=== PATIENT | male | born 1965 | race Caucasian/White ===

== ENCOUNTER → 2019-12-16 13:08 | Outpatient (REF) | payer BC, SELFPAY | LOC: ANHLAB 13:08 | PROVIDERS: PCP Family Medicine; Visit Provider Nurse Practitioner | DX: B07.0 Plantar wart (principal) | CPT/HCPCS: 88305 ==

== ENCOUNTER 2021-01-19 11:09 | Outpatient (CLI) | payer BC, SELFPAY ==
--- NOTE | 2021-01-28 12:33 | WPDHOLTEREM ---
Holter/Event Monitor Holter/Event Monitor Date of procedure: 01/19/21 Holter/Event Procedure: 48 Hr Holter Monitor Indications: Palpitations Conclusion: 1. 48 hour holter monitor on 01/19/21. 2. Underlying rhythm is sinus rhythm. HR range 48-135 bpm; average HR 74 bpm. 3. There are 12 premature supraventricular complexes. No supraventricular tachycardia. 4. There are 1,144 premature ventricular complexes, 16 ventricular couplets, 54 ventricular bigeminy, and 60 ventricular trigeminy. No ventricular tachycardia. 5. No sinoatrial or atrioventricular blocks. No significant pauses greater than 2 seconds. 6. Patient reports symptoms of skipping which demonstrates sinus rhythm, HR range 62-82 bpm and 1 PVC.
== END 2021-01-19 11:10 | disposition home or self-care (01) ==
LOC: ANHCARD 11:10
PROVIDERS: PCP Family Medicine; Visit Provider Physician Assistant Medical
DX: R00.2 Palpitations (principal)
CPT/HCPCS: 93225; 93226

== ENCOUNTER 2021-04-19 07:56 | Outpatient (CLI) | payer BC, SELFPAY ==
--- NOTE | 2021-04-29 17:37 | WPDHOMESLEEP ---
Sleep Study - Home Unattended Date of Study: 04/19/21 <Tanya Ta DO - Last Filed: 04/29/21 18:01> Ordering Provider: Ernst Singh DO <Tanya Ta DO - Last Filed: 04/29/21 18:01> Interpreting Provider: Tanya Ta DO <Tanya Ta DO - Last Filed: 04/29/21 18:01> Home Sleep Study Type: Apnea Link Air <Tanya Ta DO - Last Filed: 04/29/21 18:01> Height: 1.83 m <Tanya Ta DO - Last Filed: 04/29/21 18:01> Weight: 132.903 kg <Tanya Ta DO - Last Filed: 04/29/21 18:01> Body Mass Index: 39.7 <Tanya Ta DO - Last Filed: 04/29/21 18:01> Neck Circumference (inches): 19 <Tayna Ta DO - Last Filed: 04/29/21 18:01> Alto: 3 <Tanya Ta DO - Last Filed: 04/29/21 18:01> Reason for Sleep Study The patient has snoring and daytime somnolence. <Tanya Ta DO - Last Filed: 04/29/21 18:01> Sleep History The patient is a 56-year-old male with hypertension, asthma, GERD that was referred by Dr. Singh for evaluation of RENETTA. 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 He states that he rarely awakens from sleep short of breath. He never awakens at night with heartburn, belching or cough. He often snores but never loud enough that others complain. He often has trouble sleeping when he has a cold. He rarely wakes up gasping for air throughout the night. He denies having breathing problems at night observed by others. He rarely falls asleep during the day and never while driving. He denies sleep paralysis, cataplexy and hypnagogic / hypnopompic hallucinations. He rarely has nightmares. He rarely feels sad or depressed but often has anxiety. He denies kicking throughout the night. He often experiences crawling and aching feelings in his legs. He often has leg pain during the night. He denies grinding his teeth during sleep and awakening with jaw pain in the morning. He is often bothered by pain during the day but never awakened by pain during the night. He goes to bed at midnight on both the weekdays and weekends. It takes him 5-10 minutes to fall asleep at night. He wakes up twice throughout the night. When he gets up, he will either try to go back to sleep or use the restroom. He can fall back asleep quickly. He typically wakes up at 3:00 a.m. on the weekdays and 4:00 a.m. on the weekends. He gets about 5 hours of sleep per night. He will lay in bed for 3-5 minutes after waking up in the morning. He currently lives with his . He denies consuming any caffeinated beverages within 2 hours of going to bed. He denies physical exercise before bedtime. He does not read or watch television before falling asleep. He does not nap during the afternoon or the evening. He denies tobacco, caffeine, alcohol and recreational drug use. <Tanya Ta DO - Last Filed: 04/29/21 18:01> [facility] Past Medical History Medical History: Medical History Acid reflux Asthma BMI 33.0-33.9,adult BMI 34.0-34.9,adult Hypertension <Tanya Ta DO - Last Filed: 04/29/21 18:01> Surgical History Surgical History: Surgical History History of back surgery 1995 History of knee surgery 1994 <Tanya Ta DO - Last Filed: 04/29/21 18:01> Family History Family History: Family History Grandparent Family history of malignant neoplasm of stomach Diabetes mellitus Father Acute myocardial infarction Other Cerebrovascular accident Family history of coronary artery disease Hypertension <Tanya Ta DO - Last Filed: 04/29/21 18:01> Social History Social History: Social History Alcohol intake: never Sub
[2021-04-29 17:45] VITALS: BMI 39.7
== END 2021-04-20 09:58 | disposition home or self-care (01) ==
LOC: ANHCSM 07:57
PROVIDERS: PCP Family Medicine; Visit Provider Internal Medicine Cardiovascular Disease
DX: G47.10 Hypersomnia, unspecified (principal); G47.33 Obstructive sleep apnea (adult) (pediatric)
CPT/HCPCS: 95806

== ENCOUNTER 2021-05-13 07:54 | Outpatient (CLI) | payer BC, SELFPAY ==
--- NOTE | ~2021-05-13 | XR_ITS ---
EXAMINATION: XR chest 2V DATE: 05/13/2021 08:07 INDICATION: Acute bronchitis TECHNIQUE: PA and lateral views of the chest were obtained. COMPARISON: Chest radiograph dated 11/27/2012 FINDINGS: There is some infrahilar bronchial wall thickening consistent with given history of bronchitis. There also however some mild airspace opacities in bilateral lower lung zones consistent with pneumonia. N o pleural effusion or pneumothorax. The cardiomediastinal silhouette is normal. Chronic mild anterior wedging of a few lower thoracic vertebral bodies with mild spondylosis. IMPRESSION: 1. Bronchial wall thickening but also subtle airspace opacities in bilateral lower lung zones consist ent with bronchitis and likely early pneumonia. Reviewed, dictated and finalized at location A. IMPRESSION: 1. Bronchial wall thickening but also subtle airspace opacities in bilateral lo wer lung zones consistent with bronchitis and likely early pneumonia.
== END 2021-05-13 07:55 | disposition home or self-care (01) ==
LOC: ANHIMG 07:55
PROVIDERS: PCP Family Medicine; Visit Provider Physician Assistant Medical
DX: J20.9 Acute bronchitis, unspecified (principal); M47.814 Spondylosis without myelopathy or radiculopathy, thoracic region
CPT/HCPCS: 71046

== ENCOUNTER 2021-10-30 13:45 | Emergency (ER) | payer BC, SELFPAY ==
[2021-10-30 13:49] VITALS: BP 131/85; PULSE 92; RESP 20; TEMP 36.6; O2SAT 98
--- NOTE | 2021-10-30 14:47 | ED.GENADULT ---
HPI - General Adult General Chief complaint: Wound/Laceration Stated complaint: insect bite. Source: patient Mode of arrival: ambulatory Limitations: no limitations History of Present Illness HPI narrative: Patient presents for evaluation of what he believes is a spider bite to the left forearm. He states that this occurred around noon today. He initially had some erythema extending down the forearm to the wrist. He states that the erythema has resolved. He denies any drainage, pain, swelling or pruritis. He is not diabetic. He has not tried any therapies to assist with his symptoms. No loss of ROM in affected extremity. No additional complaints or concerns. Related Data Home Medications Medication Instructions Recorded Confirmed esomeprazole magnesium 20 mg 20 mg PO DAILY 06/17/21 10/30/21 tablet,delayed release Allergies Allergy/AdvReac Type Severity Reaction Status Date / Time No Known Allergies Allergy Unknown Verified 10/30/21 14:04 Review of Systems Review of Systems: CONSTITUTIONAL: Denies fever, chills, or sweats. EYES: Denies visual changes, redness, or discharge. ENT: Denies rhinorrhea, congestion, sore throat, or otalgia. CARDIOVASCULAR: Denies chest pain, palpitations, or edema. RESPIRATORY: Denies cough or dyspnea. GASTROINTESTINAL: Denies abdominal pain, nausea, vomiting, or diarrhea. GENITOURINARY: Denies dysuria or hematuria. SKIN: Reports redness to the left forearm earlier, now resolved. MUSCULOSKELETAL: Denies back pain, joint pain, or myalgia. NEUROLOGIC: Denies headache, numbness, dizziness, or weakness. PSYCHIATRIC: Denies anxiety or depression. [facility] Past Medical History Medical History Acid reflux Asthma BMI 33.0-33.9,adult BMI 34.0-34.9,adult Hypertension Surgical History Surgical History History of back surgery 1995 History of knee surgery 1994 Family History Family History Grandparent Family history of malignant neoplasm of stomach Diabetes mellitus Father Acute myocardial infarction Other Cerebrovascular accident Family history of coronary artery disease Hypertension Social History Social History (Reviewed 10/30/21 @ 14:49 by Oren Soliman, [facility], [place] Smoking status: Unknown if ever smoked Alcohol intake: never Substance use: never Substance use type: does not use Additional living arrangements comments: Additional occupation/education comments: [employer] Gender identity (if verbalized by the patient): Male Sexual Orientation (if Verbalized by the Patient): Straight or Heterosexual Spiritual care concerns: No Agree to blood products: Yes Exam Narrative: GENERAL: Well-appearing, well-nourished, and in no acute distress. HEAD: Normocephalic, atraumatic. EYES: PERRLA and EOMI. ENT: Nares clear, no rhinorrhea or epistaxis. Mucous membranes moist. Oropharynx without tonsillar hypertrophy exudate or other lesions. Bilateral TMs pearly denney nonbulging NECK: Supple. No adenopathy or masses. No carotid bruits or JVD CHEST: Clear to auscultation. No respiratory distress. No wheezes rales or rhonchi HEART: Regular rate and rhythm. No murmur heard. Normal peripheral pulses. ABDOMEN: Soft, nontender, nondistended, normal active bowel sounds. EXTREMITIES: Normal range of motion. No edema. SKIN: There are a few pinpoint area of erythema to proximal aspect of the left forearm. Warm, dry, no rash. NEURO: No focal deficits. Alert and oriented x3. PSYCH: Normal mood and affect. Course Course Emergency Course: This is a 56-year-old male who presented with concerns that he may have experienced a spider bite just COUNTER POCKET SEWER. Upon the time of my evaluation, his symptoms are near resolved. I do not appreciate any significant abnormalities on my exam. In
== END 2021-10-30 14:45 | disposition home or self-care (01) ==
PROVIDERS: Emergency Provider Nurse Practitioner; PCP Family Medicine
DX: S50.862A Insect bite (nonvenomous) of left forearm, initial encounter (principal); W57.XXXA Bitten or stung by nonvenomous insect and other nonvenomous arthropods, initial encounter; K21.9 Gastro-esophageal reflux disease without esophagitis; J45.909 Unspecified asthma, uncomplicated
CPT/HCPCS: 99211; G0463

== ENCOUNTER 2022-02-09 09:05 | Outpatient (CLI) | payer BC, SELFPAY ==
--- NOTE | 2022-02-09 09:19 | EST_ITS ---
Patient Info Name: Mick Guerrero Age: 56 years : 1965 Gender: Male Ht: 72 in Wt: 260 lbs BSA: 2.49 m2 HR: 87 bpm BP: 148 / 102 mmHg Heart Rhythm: Sinus Rhythm Exam Date: 02/09/2022 9:54 AM Exam Location: [facility] Stress Patient Status: Outpatient Admit Date: 02/09/2022 Staff Ordering Physician: Ernst Singh DO Attending Provider: Ernst Singh DO Exercise Technologist: Anita Saavedra CT Exercise Physician: Ernst Singh DO Exam Type: CA stress test treadmill Study Info Indications R07.9 - Chest pain, unspecified A treadmill exercise stress test was performed. Summary 1. 1. Negative Davon exercise stress test for ischemic ST changes by ECG criteria. 2. 2. Reduced functional capacity, achieving 7 METs of workload. 3. 3. Baseline hypertension. 4. 4. Appropriate HR response to exercise. 5. 5. Appropriate HR recovery at 1 minute post exercise. 6. 6. No imaging with stress testing. 7. 7. Patient informed of the above results. Protocol: Davon Stress ECG Details Stage: REST Duration (min): 2 min : 16 sec Speed (mph): 0.0 Grade (%): 0 HR (bpm): 83 SBP (mmHg): 148 DBP (mmHg): 102 METS: --- Stage: REST Duration (min): 12 min : 40 sec Speed (mph): 0.0 Grade (%): 0 HR (bpm): 112 SBP (mmHg): 150 DBP (mmHg): 102 METS: --- Stage: STAGE 1 Duration (min): 1 min : 0 sec Speed (mph): 1.7 Grade (%): 10 HR (bpm): 109 SBP (mmHg): 150 DBP (mmHg): 102 METS: --- Stage: STAGE 1 Duration (min): 2 min : 0 sec Speed (mph): 1.7 Grade (%): 10 HR (bpm): 119 SBP (mmHg): 150 DBP (mmHg): 102 METS: --- Stage: STAGE 1 Duration (min): 3 min : 0 sec Speed (mph): 1.7 Grade (%): 10 HR (bpm): 125 SBP (mmHg): 184 DBP (mmHg): 89 METS: --- Stage: STAGE 2 Duration (min): 1 min : 0 sec Speed (mph): 2.5 Grade (%): 12 HR (bpm): 132 SBP (mmHg): 184 DBP (mmHg): 89 METS: --- Stage: STAGE 2 Duration (min): 2 min : 0 sec Speed (mph): 2.5 Grade (%): 12 HR (bpm): 138 SBP (mmHg): 190 DBP (mmHg): 92 METS: --- Stage: STAGE 2 Duration (min): 2 min : 59 sec Speed (mph): 3.4 Grade (%): 14 HR (bpm): 145 SBP (mmHg): 190 DBP (mmHg): 92 METS: --- Stage: RECOVERY Duration (min): 1 min : 0 sec Speed (mph): 0.0 Grade (%): 0 HR (bpm): 125 SBP (mmHg): 183 DBP (mmHg): 81 METS: --- Stage: RECOVERY Duration (min): 2 min : 0 sec Speed (mph): 0.0 Grade (%): 0 HR (bpm): 100 SBP (mmHg): 183 DBP (mmHg): 81 METS: --- Stage: RECOVERY Duration (min): 3 min : 0 sec Speed (mph): 0.0 Grade (%): 0 HR (bpm): 106 SBP (mmHg): 183 DBP (mmHg): 81 METS: --- Stage: RECOVERY Duration (min): 3 min : 3 sec Speed (mph): 0.0 Grade (%): 0 HR (bpm): 108 SBP (mmHg): 183 DBP (mmHg): 81 METS: --
== END 2022-02-09 09:06 | disposition home or self-care (01) ==
PROVIDERS: PCP Family Medicine; Visit Provider Internal Medicine Cardiovascular Disease
DX: R07.9 Chest pain, unspecified (principal); I10 Essential (primary) hypertension
CPT/HCPCS: 93017

== ENCOUNTER 2022-03-01 08:16 | Outpatient (CLI) | payer BC, SELFPAY ==
--- NOTE | ~2022-03-01 | XR_ITS ---
XR knee RT min 4V 03/01/2022 08:31 Indication: Right knee pain Procedure: 4 views right knee Comparison: 12/26/2018 Findings: There is mild osteoarthritis. No fracture or traumatic malalignment. No significant joint e ffusion. No foreign body. Impression: 1: Mild osteoarthritis of the right knee. Reviewed, dictated and finalized at location A. Impression: 1: Mild osteoarthritis of the right knee.
== END 2022-03-01 08:17 | disposition home or self-care (01) ==
PROVIDERS: PCP Family Medicine; Visit Provider Family Medicine
DX: M17.11 Unilateral primary osteoarthritis, right knee (principal)
CPT/HCPCS: 73564

== ENCOUNTER 2022-03-30 10:44 | Outpatient (CLI) | payer BC, SELFPAY ==
--- NOTE | ~2022-03-30 | MR_ITS ---
EXAMINATION: MR knee RT wo con DATE: 03/30/2022 11:39 INDICATION: Internal derangement of the knee. Generalized right knee pain TECHNIQUE: Magnetic resonance imaging (MRI) of the right knee was performed without intravenous contr ast. Sequences included axial PD-weighted FS FSE, coronal PD-weighted FSE and PD-weighted FS FSE, sag ittal PD-weighted FSE, and sagittal T2-weighted FS FSE. COMPARISON: X-ray right knee 03/01/2022. FINDINGS: Medial compartment: Meniscus intact. Mild diffuse cartilage thinning and osteophytosis. Lateral compartment: Apical tear of the meniscal body. Mild diffuse cartilage thinning with partial thickness cartilage si gnal abnormality. Mild osteophytosis. Patellofemoral compartment: Partial-thickness cartilage fissure on the median ridge. Severe bilateral facet cartilage thinning. R [place] intact. Ligaments and tendons: ACL tear. PCL, MCL, and LCL are intact. Flexor and extensor tendons are intact. Fluid: Large volume joint fluid. Mild edema of the infrapatellar fat pad. Osseous/other: No suspicious focal or diffuse marrow signal. IMPRESSION: 1. Chronic full-thickness ACL tear. 2. Apical tear of the body, lateral meniscus. 3. Tricompartmental right knee osteoarthritis, moderate in the patellofemoral compartment. 4. Large right knee joint effusion. Reviewed, dictated and finalized at location K. IMPRESSION: 1. Chronic full-thickness ACL tear. 2. Apical tear of the body, lateral meniscus. 3. Tricompartmental right knee osteoarthritis, moderate in the patellofemoral c ompartment. 4. Large right knee joint effusion.
== END 2022-03-30 10:45 ==
LOC: MICIMG 10:47
PROVIDERS: PCP Family Medicine
DX: M17.11 Unilateral primary osteoarthritis, right knee (principal); M25.461 Effusion, right knee; S83.281A Other tear of lateral meniscus, current injury, right knee, initial encounter; X58.XXXA Exposure to other specified factors, initial encounter
CPT/HCPCS: 73721

== ENCOUNTER 2022-05-30 08:53 | Outpatient (CLI) | payer BC, SELFPAY | END 2022-05-30 08:54 | disposition home or self-care (01) | LOC: ANHSURGERY 08:57 | PROVIDERS: PCP Family Medicine; Visit Provider Surgery | DX: K43.9 Ventral hernia without obstruction or gangrene (principal); Z01.818 Encounter for other preprocedural examination | CPT/HCPCS: 36415; 86850; 86900; 86901 ==

== ENCOUNTER 2022-06-08 01:10 | Day surgery (SDC) | payer BC, SELFPAY ==
[2022-05-26 12:08] VITALS: BMI 35.2
--- NOTE | 2022-05-26 12:15 | PC.NURSE ---
Report to the Outpatient Waiting Room, entrance under the green pavilion located off [facility], at time 6:00 on date 06/08/22. Planned Procedure Time: 7:30. Time changes happen often and if your time is changed the preop area will call you the afternoon before. - You and your visitor will be asked to self-screen and do not enter if you have any COVID symptoms. - Only one visitor is requested with a max of two and NO children visitors are allowed at this time. - The patient visitor may be requested to leave or wait in car when not with patient due to distancing restrictions. - A mask is optional within the hospital. Patients may have clear liquids (water, carbonated beverages, clear teas, apple juice) until 3 hours prior to surgery (4:30) with a maximum of 20 ounces. - No food from midnight until time of surgery Take the following medications with a SIP of water the morning of surgery: INHALER IF NEEDED Medications to discontinue per physician: DICLOFENAC Date to take last dose: PER DR. QUIGLEY Please no make-up, nail nepali, hairspray, perfume, deodorant, or body powder the day of surgery. No jewelry (including any body piercings) or valuables the day of surgery, leave them at home. Please take a shower or bath the night before, or the morning of, surgery with an antibacterial soap (HIBICLENS). Wear comfortable, loose fitting clothing. - Jewelry must be removed prior to entering the operating room. Rings and piercings that are not removed may be cut off. - The hospital will not accept responsibility for valuables. - Please leave all valuables, including medications, at home the day of surgery. If you are going home after surgery, a licensed m48/m60 tank driver must drive you home. - NO public transportation without another adult if you receive anesthesia. - We recommend that an adult stay with you for 24 hours following discharge. - We also recommend that you do not drive, make important decision, drink alcoholic beverages, or take any drugs that were not prescribed by your health care provider for at least 24 hours after your discharge time. Follow any additional instructions given to you from your surgeon. If you or anyone in your household have experienced Covid symptoms in the past week, please notify your surgeon or the nurse liaison at the phone number below for possible testing. Telephone instructions given to BERNARDO EDMONDS and asked if any additional questions and then verbalized understanding. Patient advised to call surgeon office or pre surgery nurse liaison [phone] if any additional questions.
[2022-06-08] VITALS (12 sets, daily range): BP systolic 87–150; BP diastolic 55–99; PULSE 60–96; RESP 11–21; TEMP 36.3–36.4; O2SAT 95–100
--- NOTE | 2022-06-08 06:54 | WPDANESEPPF ---
Anes - Initial Pre Proc Eval Procedure: Operation Date: 06/08/22 07:30 Proposed Procedures p Laparoscopic Ventral Hernia Repair with Mesh, Davinci Assisted - Guillaume Caraballo DO Date/Time: 06/08/22 06:54 Surgeon: Guillaume Caraballo DO Pre Op Diagnosis: ventral hernia Patient Data Age: 57 Gender: M Height: 1.83 m Weight: 118 kg Allergies Allergy/AdvReac Type Severity Reaction Status Date / Time No Known Allergies Allergy Unknown Verified 05/26/22 12:06 Home Medications Medication Instructions Recorded Confirmed Type albuterol sulfate 90 mcg/actuation 1 inh inhalation Q4H #8.5 grams 04/29/21 05/26/22 Rx aerosol inhaler (ProAir HFA) rosuvastatin 20 mg tablet (Crestor) 20 mg PO DAILY #30 tabs 08/27/21 05/26/22 Rx diclofenac sodium 50 mg 50 mg PO BID #180 tabs 11/02/21 05/26/22 Rx tablet,delayed release quinapril 40 mg tablet See Rx Instructions .Route 12/23/21 05/26/22 Rx .COMPLEX #90 tabs esomeprazole magnesium 40 mg 40 mg PO DAILY #90 caps 12/30/21 05/26/22 Rx capsule,delayed release Patient hx anesthesia problems: none Family hx anesthesia problems: none Results Review: All pre-operative results and documents have been reviewed as part of the pre-operative evaluation. [facility] Past Medical History Medical History Acid reflux Asthma BMI 33.0-33.9,adult BMI 34.0-34.9,adult Chest pain GERD without esophagitis Hypertension Knee pain, right Umbilical hernia without mention of obstruction or gangrene Surgical History Surgical History History of back surgery 1995 History of knee surgery 1994 History of toe surgery S/P excision of lipoma Family History Family History Grandparent Family history of malignant neoplasm of stomach Diabetes mellitus Father Acute myocardial infarction Mother Hypertension Cancer Other Cerebrovascular accident Family history of coronary artery disease Social History Social History Smoking status: Former smoker Tobacco type: cigarettes Additional smoking assessment comments: FOR A SHORT AMOUNT OF TIME 30 YRS AGO Alcohol intake: never Substance use: never Substance use type: does not use Living arrangements: with family Additional living arrangements comments: Additional occupation/education comments: [employer] Gender identity (if verbalized by the patient): Male Sexual Orientation (if Verbalized by the Patient): Straight or Heterosexual Spiritual care concerns: No Agree to blood products: Yes Anes - Eval Final PreProcedure Day of Procedure 06/08/22 06:54 Patient weight: obese Heart: regular rate and rhythm Lungs: clear to auscultation Airway: Mallampati scale class II Neurological: alert and oriented Last oral intake: >/= 8 hours ASA classification: III Emergent: no Anesthetic plan: proceed Anesthesia type and monitoring: general ETT and standard monitoring Results Review: All pre-operative results and documents have been reviewed as part of the pre-operative evaluation. Informed Consent: The patient's anesthetic plan and its attendant risks and benefits were discussed with the patient/family/POA. Questions were solicited and answers provided to the satisfaction of the patient/family/POA.
[2022-06-08] MEDS: LACTATED RINGERS 1,000 ML 30 ML IV CONT ×3 (07:00→10:50)
[2022-06-08] MEDS: ACETAMINOPHEN 500 MG TABLET 1000 MG PO (07:00)
[2022-06-08] MEDS: KETOROLAC 15 MG/ML VIAL (*BKC) IV PUSH (07:00)
[2022-06-08] MEDS: CHLORHEXIDINE GLUCONATE 4% SOL 120 ML BTL 1 APPLIC TOPICAL (07:00)
--- NOTE | 2022-06-08 07:12 | PM.IMHP ---
H&P: HPI History of Present Illness Date/Time: 06/08/22 07:12 Chief Complaint: Ventral hernia Narrative: 57 yo man presents for ventral hernia repair. He reports no changes since last seen in office. Review of Systems Review of Systems: All systems reviewed & are unremarkable except as noted in HPI and below Constitutional: Constitutional: Denies chills, Denies fever(s), Denies headache(s) and Denies weight loss Eyes: Eyes: Denies change in vision ENT: Denies dizziness, Denies headache(s), Denies neck mass and Denies throat swelling Cardiovascular: Cardiovascular: Denies chest pain, Denies lightheadedness and Denies dyspnea Respiratory: Respiratory: Denies cough, Denies dyspnea and Denies wheezing Gastrointestinal: Gastrointestinal: Denies abdominal pain, Denies change in bowel habits, Denies nausea and Denies vomiting Genitourinary: Genitourinary: Denies hematuria and Denies dysuria Musculoskeletal: Musculoskeletal: Reports as per HPI Integumentary/Breasts: Skin/Breast: Reports as per HPI Neurologic: Denies dizziness and Denies headache(s) Allergic/Immunologic: Allergic/Immunologic: Denies throat swelling and Denies wheezing [facility] Past Medical History Medical History Acid reflux Asthma BMI 33.0-33.9,adult BMI 34.0-34.9,adult Chest pain GERD without esophagitis Hypertension Knee pain, right Umbilical hernia without mention of obstruction or gangrene Surgical History Surgical History History of back surgery 1995 History of knee surgery 1994 History of toe surgery S/P excision of lipoma Family History Family History Grandparent Family history of malignant neoplasm of stomach Diabetes mellitus Father Acute myocardial infarction Mother Hypertension Cancer Other Cerebrovascular accident Family history of coronary artery disease Social History Social History Smoking status: Former smoker Tobacco type: cigarettes Additional smoking assessment comments: FOR A SHORT AMOUNT OF TIME 30 YRS AGO Alcohol intake: never Substance use: never Substance use type: does not use Living arrangements: with family Additional living arrangements comments: Additional occupation/education comments: [employer] Gender identity (if verbalized by the patient): Male Sexual Orientation (if Verbalized by the Patient): Straight or Heterosexual Spiritual care concerns: No Agree to blood products: Yes Meds Home Medications and Allergies Home Medications Medication Instructions Recorded Confirmed Type albuterol sulfate 90 mcg/actuation 1 inh inhalation Q4H #8.5 grams 04/29/21 05/26/22 Rx aerosol inhaler (ProAir HFA) rosuvastatin 20 mg tablet (Crestor) 20 mg PO DAILY #30 tabs 08/27/21 05/26/22 Rx diclofenac sodium 50 mg 50 mg PO BID #180 tabs 11/02/21 05/26/22 Rx tablet,delayed release quinapril 40 mg tablet See Rx Instructions .Route 12/23/21 05/26/22 Rx .COMPLEX #90 tabs esomeprazole magnesium 40 mg 40 mg PO DAILY #90 caps 12/30/21 05/26/22 Rx capsule,delayed release Allergies Allergy/AdvReac Type Severity Reaction Status Date / Time No Known Allergies Allergy Unknown Verified 06/08/22 07:06 Exam Const: General: no acute distress and alert Orientation/consciousness: patient oriented x3 HENMT: Head: normocephalic and atraumatic Ears: hearing grossly normal bilaterally Face/Nose/Sinus: Normal nares present Mouth: Yes Normal oral and palatal mucosa present Eyes: Periorbital: periorbital findings normal Sclera: sclerae normal EOM: EOMs intact bilaterally Neck: Neck: normal visual inspection, no lymphadenopathy and trachea midline Chest: Chest palpation & inspection: normal inspection of the chest Resp: Effort & Inspection:
--- NOTE | 2022-06-08 07:14 | WPDHPUPDATE1 ---
History and Physical Update Update Date/Time: 06/08/22 07:14 History and Physical has been reviewed, including an updated exam of the patient. There are NO changes in the patient's condition. Risks, benefits, and alternatives have been discussed and questions answered. Patient agrees to proceed with procedure.
[2022-06-08] MEDS: ceFAZolin 2 GM/D5W 50 ML 2 GM/50 ML BAG IVPB (07:28)
--- NOTE | 2022-06-08 08:55 | W.PM.PROC2 ---
Procedure Note - Detailed Date of Procedure 06/08/22 Pre-op Diagnosis ventral hernia Post-op Diagnosis Other (Incarcerated Ventral Hernia) Procedure Performed Laparoscopic Incarcerated Ventral Hernia Repair with Mesh, da Cecelia assisted Surgeon Guillaume Caraballo DO Anesthesia General and Local (Exparel) Indications This is a 57-year-old man who presented with a bulge just superior to his umbilicus that he noticed about 6 months ago. He had some discomfort with activity and when the area was pressed on. He was found to have a ventral hernia located about 2 cm superior to the umbilicus. Discussions were made with the patient about treatment options and decision was made to proceed with robotic assisted laparoscopic ventral hernia repair with mesh. Findings Laparoscopic incarcerated ventral hernia repair was performed. Upon entering the abdomen laparoscopically, the ventral hernia was identified and appeared to be incarcerated with omentum. The hernia was located about 2 cm superior to the umbilicus and only measured about 1.5 cm wide. A robotic transabdominal preperitoneal approach was utilized for repair. The incarcerated contents were reduced and a preperitoneal pocket was then created. The hernia was closed using 0 Stratafix running absorbable suture. A 15 cm x [address] mesh was then placed within the preperitoneal pocket was secured to the abdominal wall using 3-0 Vicryl simple interrupted sutures. No specimens were obtained for pathology. Description of Procedure Procedure as well as risks, benefits, and alternatives were discussed with the patient. Written consent was obtained and placed in chart prior to procedure. Patient was brought back to surgical suite. He was placed supine on operating table. Time-out was done to confirm patient and procedure. He was then intubated by the anesthesia department. A bump was placed under his left hip, and the bed was flexed slightly to extend the space between his costal margin and iliac crest. His abdomen was prepped and draped in sterile fashion using chlorhexidine prep. A 5 millimeter incision was made in the left upper quadrant, and a 5 millimeter Optiview trocar was advanced through the abdominal layers under direct visualization. Once inside the abdominal cavity, carbon dioxide insufflation was used to create a pneumoperitoneum. His abdomen was inspected. An 8 millimeter incision was made in the left lower quadrant, and an 8 millimeter robotic trocar was placed under direct visualization. Another 8 millimeter incision was made in the left lateral abdomen, and an 8 millimeter robotic trocar was placed under direct visualization. Exparel was infiltrated along the lateral abdominal cm to perform a transversus abdominis plane block bilaterally. The 5 millimeter port was removed, the incision was extended to 12 millimeters, and a 12 millimeter air seal port was placed under direct visualization. A Gray-Ramon cone was also used to place an 0-Vicryl simple interrupted suture at this trocar site. The robotic arms were brought up to the patient's bedside and secured to the ports. The camera and instruments were inserted, and I then moved over to the robotic console and took control of the camera and instruments. After careful thorough inspection of the abdominal cavity, I began my dissection at the hernia. The incarcerated omentum was carefully reduced. I then created a preperitoneal pocket starting along the left lateral abdomen using scissors with electrocautery. The preperitoneal pocket was then extended all the way to the right lateral abdomen and the hernia sac was reduced. I then measured the hernia size. The hernia measured 1.5 cm. The fascia was closed using an 0-Stratafix running suture in a vertical fashion. A 15 cm x [address] mesh was then placed within the preperitoneal pocket. This was oriented vertically with the mesh centered on the hernia defect. The mesh wa
[2022-06-08] MEDS: ONDANSETRON INJ 4 MG/2 ML VIAL IV PUSH (10:07)
--- NOTE | 2022-06-08 10:19 | SUR.PHASEII ---
COOL COMPRESS TO BACK OF NECK FOR NAUSEA. ZOFRAN GIVEN; WILL CONTINUE TO MONITOR.
[2022-06-08] MEDS: diphenhydrAMINE HCl INJ 50 MG/ML VIAL 25 MG IV PUSH (10:32)
[2022-06-08] MEDS: SCOPOLAMINE 1.5 MG PATCH TRANSDERM (10:37)
[2022-06-08] MEDS: fentaNYL CITRATE INJ (*CRX) 100 MCG/2 ML VIAL 25 MCG IV PUSH (10:49)
--- NOTE | 2022-06-08 11:48 | SUR.PHASEII ---
PATIENT INSTRUCTED TO CALL ME WHEN HE IS READY TO TAKE A PO PAIN MED. HE IS STILL TRYING TO EAT A FEW CRACKERS.
[2022-06-08] MEDS: oxyCODONE HCL (*CRX) 5 MG TAB IR PO (12:45)
== END 2022-06-08 12:59 | disposition home or self-care (01) ==
PROVIDERS: PCP Family Medicine; Visit Provider Surgery
PROC: (CPT 49653; principal; 2022-06-08 07:30)
DX: K43.6 Other and unspecified ventral hernia with obstruction, without gangrene (principal); I10 Essential (primary) hypertension; K21.9 Gastro-esophageal reflux disease without esophagitis; J45.909 Unspecified asthma, uncomplicated; Z79.51 Long term (current) use of inhaled steroids; Z87.891 Personal history of nicotine dependence; E66.9 Obesity, unspecified; Z68.33 Body mass index [BMI] 33.0-33.9, adult
CPT/HCPCS: 49653; S2900; A9270; C1781; C9290; J0690; J1100; J1170; J1200; J1885; J2250; J2370; J2405; J2704; J2710; J3010; J7120

== ENCOUNTER 2022-07-07 07:00 | Outpatient (NON) | payer BC, SELFPAY | END 2022-07-07 07:01 | disposition home or self-care (01) | LOC: ANHLAB 07-08 11:45 | PROVIDERS: PCP Family Medicine; Visit Provider Nurse Practitioner | DX: D49.2 Neoplasm of unspecified behavior of bone, soft tissue, and skin (principal) | CPT/HCPCS: 88305 ==

== ENCOUNTER 2023-04-30 10:55 | Outpatient (CLI) | payer BC, SELFPAY ==
--- NOTE | ~2023-04-30 | XR_ITS ---
XR knee LT 3V 04/30/2023 11:11 Indication: Left knee pain Procedure: 3 views left knee Comparison: 10/11/2016 Findings: There is mild patellofemoral compartment osteoarthritis. No fracture or traumatic malalignm ent. No significant joint effusion. No foreign bodies. Impression: 1: Mild patellofemoral compartment osteoarthritis. Reviewed, dictated and finalized at location A. Impression: 1: Mild patellofemoral compartment osteoarthritis.
== END 2023-04-30 10:56 | disposition home or self-care (01) ==
LOC: ANHIMG 10:56
PROVIDERS: PCP Family Medicine; Visit Provider Physician Assistant Medical
DX: M17.12 Unilateral primary osteoarthritis, left knee (principal)
CPT/HCPCS: 73562

== ENCOUNTER 2023-08-07 08:43 | Outpatient (CLI) | payer BC, SELFPAY ==
--- NOTE | ~2023-08-07 | US_ITS ---
Abdominal Sonogram: Real-time sonographic imaging of the abdomen was performed. Clinical History: Abdominal pain Findings: The liver appears echogenic, with no evidence of mass lesion or bile duct dilatation. Main portal vein demonstrates normal direction of flow. The spleen is normal in size without evidence of focal lesion. The gallbladder is well distended, and appears normal with no evidence of gallstone or wall thickening. The common bile duct measures 4 mm. The visualized pancreas, aorta, and IVC are un remarkable. The right kidney measures 12.3 cm in length and the left kidney measures 13.2 cm. There is no hydronephrosis or renal calculus. Impression: Diffuse fatty infiltration of the liver. Reviewed, dictated and finalized at location M. DING SPECIALIST Impression: Diffuse fatty infiltration of the liver.
== END 2023-08-07 08:44 | disposition home or self-care (01) ==
PROVIDERS: PCP Family Medicine; Visit Provider Family Medicine
DX: R10.12 Left upper quadrant pain (principal); K76.0 Fatty (change of) liver, not elsewhere classified
CPT/HCPCS: 76700

== ENCOUNTER 2023-08-30 14:05 | Outpatient (CLI) | payer BC, SELFPAY ==
--- NOTE | ~2023-08-30 | CT_ITS ---
EXAMINATION: CT abdomen w con DATE: 08/30/2023 14:41 INDICATION: Left upper quadrant abdominal pain. TECHNIQUE: Computed tomography (CT) of the abdomen was performed with 100 mL Omnipaque 350 intravenou s contrast. Automated exposure control and iterative reconstruction technique were employed. The dose -length product was 901.94 mGy-cm. COMPARISON: CT abdomen and pelvis 04/25/2011 FINDINGS: The visualized portions of the lung bases demonstrate mild atelectasis. No pleural effusion . The heart size is normal. No pericardial effusion. The liver and spleen are normal. There is a gall stone in the gallbladder, which is normal in size. The pancreas, adrenal glands, and kidneys are norm al. There are no dilated loops of bowel. The appendix is normal. There are no pathologically enlarged lymph nodes. There is no free intraperitoneal fluid. There is severe thoracic and lumbar spondylosis . There is mild chronic anterior wedging of multiple vertebral bodies. IMPRESSION: 1. Cholelithiasis. Reviewed, dictated and finalized at location E. TENANCE APPRENTICE IMPRESSION: 1. Cholelithiasis.
[2023-08-30 14:38] LABS: Estimated Glomerular Filt Rate > 60
== END 2023-08-30 14:06 | disposition home or self-care (01) ==
PROVIDERS: PCP Family Medicine; Visit Provider Surgery
DX: K80.20 Calculus of gallbladder without cholecystitis without obstruction (principal)
CPT/HCPCS: 74160; Q9967

== ENCOUNTER 2024-09-17 10:06 | Outpatient (CLI) | payer BC, SELFPAY ==
--- NOTE | 2024-09-17 10:12 | EST_ITS ---
Patient Info Name: Mick Guerrero Age: 59 years : 1965 Gender: Male Ht: 72 in Wt: 250 lbs BSA: 2.44 m2 HR: 80 bpm BP: 151 / 95 mmHg Exam Date: 09/17/2024 10:27 AM Exam Location: Echo Lab Patient Status: Outpatient Admit Date: 09/17/2024 Staff Ordering Physician: Sapphire Abarca APRN Attending Provider: Sapphire Abarca APRN Exercise Technologist: Ellie Lion GLYNN Exercise Physician: Ernst Singh DO Exam Type: CA stress test treadmill Study Info A treadmill exercise stress test was performed. Summary 1. 1. Negative Davon exercise stress test for ischemic ST changes by ECG criteria. 2. 2. Reduced functional capacity, achieving 8 METs of workload. 3. 3. Appropriate HR response to exercise. 4. 4. Appropriate HR recovery at 1 minute post exercise. 5. 5. Baseline hypertension. 6. 6. No imaging with stress testing. 7. 7. Patient informed of the above results. Protocol: Davon Stress ECG Details Stage: REST Duration (min): 0 min : 52 sec Speed (mph): 0.0 Grade (%): 0 HR (bpm): 79 SBP (mmHg): 151 DBP (mmHg): 95 METS: --- Stage: REST Duration (min): 7 min : 49 sec Speed (mph): 0.0 Grade (%): 0 HR (bpm): 90 SBP (mmHg): 151 DBP (mmHg): 95 METS: --- Stage: STAGE 1 Duration (min): 1 min : 0 sec Speed (mph): 1.7 Grade (%): 10 HR (bpm): 110 SBP (mmHg): 151 DBP (mmHg): 95 METS: --- Stage: STAGE 1 Duration (min): 2 min : 0 sec Speed (mph): 1.7 Grade (%): 10 HR (bpm): 117 SBP (mmHg): 151 DBP (mmHg): 95 METS: --- Stage: STAGE 1 Duration (min): 3 min : 0 sec Speed (mph): 1.7 Grade (%): 10 HR (bpm): 120 SBP (mmHg): 191 DBP (mmHg): 99 METS: --- Stage: STAGE 2 Duration (min): 1 min : 0 sec Speed (mph): 2.5 Grade (%): 12 HR (bpm): 130 SBP (mmHg): 191 DBP (mmHg): 99 METS: --- Stage: STAGE 2 Duration (min): 2 min : 0 sec Speed (mph): 2.5 Grade (%): 12 HR (bpm): 135 SBP (mmHg): 187 DBP (mmHg): 96 METS: --- Stage: STAGE 2 Duration (min): 3 min : 0 sec Speed (mph): 2.5 Grade (%): 12 HR (bpm): 140 SBP (mmHg): 187 DBP (mmHg): 96 METS: --- Stage: STAGE 3 Duration (min): 0 min : 30 sec Speed (mph): 3.4 Grade (%): 14 HR (bpm): 148 SBP (mmHg): 187 DBP (mmHg): 96 METS: --- Stage: RECOVERY Duration (min): 0 min : 29 sec Speed (mph): 0.0 Grade (%): 0 HR (bpm): 139 SBP (mmHg): 188 DBP (mmHg): 99 METS: --- Stage: RECOVERY Duration (min): 1 min : 29 sec Speed (mph): 0.0 Grade (%): 0 HR (bpm): 111 SBP (mmHg): 188 DBP (mmHg): 99 METS: --- Stage: RECOVERY Duration (min): 2 min : 29 sec Speed (mph): 0.0 Grade (%): 0 HR (bpm): 104 SBP (mmHg): 188 DBP (mmHg): 99 METS: --- Stage: RECOVERY Duration (min): 3 min : 3 sec Speed (mph): 0.0 Grade (%): 0 HR (bpm): 98 SBP (mmHg): 158 DBP (mmHg): 98 METS: --- Rest HR: 90 bpm Peak HR: 148 bpm Rest Sys BP: 151 mmHg Peak Sys BP: 191 mmHg Max Pred HR: 160 bpm % Max Pred HR: 93 % Target HR: 136 bpm Max RPP: 28,268 bpm*mmHg Hernandez Score: 2 Termination Reason: Reached target heart rate or workload Cardiac Symptoms: Shortness of breath Max ST Seg Deviation: 0.90 mm Total Time: 6 min : 30 sec Rest Diaz BP: 95 mmHg Peak Diaz BP: 99 mmHg Angina Score: None Total METS: 8.0 Resting ECG Sinus rhythm, BRWP. Stress ECG No ST changes. Arrhythmias None. Report Signatures
--- OUTSIDE RECORDS SUMMARY | 2024-09-17 11:27 | XMS_ITS | Clinical Summary ---
Author Organization [facility] Address [address] [place] [address] Care Team Providers Care Leveling Machine Operator Name Role Phone Alberto Mcqueen MD Primary Care Provider + [phone] Allergies No known active allergies Medications quinapriL (ACCUPRIL) 40 mg tablet 06/11/[address] (VOLTAREN) 50 mg EC tablet 06/21/[address] (NexIUM) 40 mg capsule Take 40 mg by mouth daily before breakfast Active metoclopramide (REGLAN) 10 mg tablet Take 1 tablet (10 mg total) by mouth every 6 (six) hours 30 tablet 09/08/19 21 Active diazePAM (VALIUM) 5 mg tablet Take 1 tablet (5 mg total) by mouth 2 (two) times a day 10 tablet 09/08/19 21 Active meclizine (ANTIVERT) 25 mg tablet Take 1 tablet (25 mg total) by mouth 3 (three) times a day as needed for dizziness 30 tablet 09/08/19 21 Active albuterol HFA (ProAir HFA) 90 mcg/actuation inhaler ProAir HFA 90 mcg/actuation aerosol inhaler Active ondansetron ODT (ZOFRAN-ODT) 4 mg disintegrating tablet ondansetron 4 mg disintegrating tablet DISSOLVE 1 TABLET BY MOUTH EVERY 8 HOURS NEEDED FOR NAUSEA/VOMITING Active mometasone (ELOCON) 0.1 % solution mometasone 0.1 % topical solution Active divalproex DR (DEPAKOTE) 250 mg EC tablet divalproex 250 mg tablet,delayed release TAKE 1 TABLET BY MOUTH EVERY 12 HOURS Active azelastine (ASTELIN) 137 mcg (0.1 %) nasal spray azelastine 137 mcg (0.1 %) nasal spray aerosol INSTILL 2 SPRAYS INTO THE NOSTRIL(S) TWICE DAILY Active rosuvastatin (CRESTOR) 20 mg tablet Take 20 mg by mouth daily 02/18/20 21 Active Active Problems Problem Noted Date Diagnosed Date Hereditary hemochromatosis 12/18/2019 Vertigo 04/30/2015 Overview (10/15/2016): Vertigo Lightheadedness 04/30/2015 Overview (10/15/2016): Lightheadedness Surgical History Surgery Date Site/Laterality Comments BACK SURGERY 07/10/1985 - 07/09/1986 Disk BACK SURGERY TOE SURGERY 07/10/2015 - 07/09/2016 Left KNEE SURGERY 07/10/1984 - 07/09/1985 Right COLONOSCOPY in 2018 and negative per patient Medical History Medical History Date Comments Asthma Asthma Hypertension Hypertension Hx Other Medical Back surgery Hx Other Medical Knee surgery Asthma Asthma Family History Medical History Relation Name Comments Heart attack Father Alcohol abuse Mother Cancer Mother Hypertension Mother Cancer Other 1 Family history of Cancer, unknown; Heart disease Other 2 Family history of Heart disease; Stroke Other 3 Family history of Stroke; Relation Name Status Comments Father Mother Other 1 Other 2 Other 3 Social History Tobacco Use Types Packs/Day Years Used Date Smoking Tobacco: Former Smokeless Tobacco: Never Alcohol Use Standard Drinks/Week Comments No 0 (1 standard drink = 0.6 oz pur e alcohol) Personal Safety Answer Date Recorded Getting School Help Needed Not on file 09/07 Sex and Gender Information Value Date Recorded Sex Assigned at Not on file 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 Gender Identity Not on file Sexual Orientation Not on file Obstetrics History Last Filed Vital Signs Vital Sign Reading Time Taken Comments Blood Pressure 142/97 12/29/2021 5:40 PM CDT Pulse 77 12/29/2021 5:40 PM CDT Temperature 36.7 C (98 F) 12/29/2021 12:30 PM CDT Respiratory Rate 17 12/29/2021 5:40 PM CDT Oxygen Saturation 97% 12/29/2021 5:40 PM CDT Inhaled Oxygen Concentration - - Weight 117.9 kg (260 lb) 12/29/2021 9:52 AM CDT Height 182 cm (5' 11.65 ) 12/29/2021 9:52 AM CDT Body Mass Index 35.6 12/29/2021 9:52 AM CDT Plan of Treatment Health Maintenance Due Date Last Done Comments Colon Cancer Screening-Colonoscopy 1965 Depression Screening 1965 Hepatitis C Screening 1965 Prostate Cancer Screening-PSA 1965 DTaP/Tdap/Td Vaccine (1 - Tdap) 1975 Hepatitis B Screening 1982 Regular Well Visit/Exam 18-64 1982 Pneumococcal vaccine <65 (1 of 2 - PCV) 1983 Zoster Vaccine (1 of 2) 2014 Influenza Vaccine (#1) 2024 07/10/2017 Insurance [employer] OOS [employer] OOS Care Teams Leveling Machine Operator Relationship Specialty Start Date End Date lAberto Mcqueen MD PCP - General 06/07/11
--- OUTSIDE RECORDS SUMMARY | 2024-09-17 11:28 | XMS_ITS | Encounter Summary ---
Author Organization [facility] Address [address] [place] [address] Phone Care Team Providers Care Rubber Production Machine Operator Name Role Phone Alberto Mcqueen MD Primary Care Provider [phone] Encounter Details Date Type Department Care Team (Latest Contact Info) Description 11/02/2017 Orders Only PERDOMO IM EML Scanning, Provider Social History Tobacco Use Types Packs/Day Years Used Date Smoking Tobacco: Never Alcohol Use Standard Drinks/Week Comments No 0 (1 standard drink = 0.6 oz pur e alcohol) Sex and Gender Information Value Date Recorded Sex Assigned at Not on file 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 Gender Identity Not on file Sexual Orientation Not on file documented as of this encounter Plan of Treatment Not on file documented as of this encounter Procedures Procedure Name Priority Date/Time Associated Diagnosis Comments SCAN - RADIOLOGY/IMAGING 11/02/2017 documented in this encounter Results * SCAN - RADIOLOGY/IMAGING (11/02/2017) Anatomical Region Laterality Modality Other us Provider Scanning Final Result documented in this encounter Visit Diagnoses Not on filedocumented in this encounter Care Teams Rubber Production Machine Operator Relationship Specialty Start Date End Date Alberto Mcqueen MD PCP - General 06/07/11 documented as of this encounter
--- OUTSIDE RECORDS SUMMARY | 2024-09-17 11:28 | XMS_ITS | Referral Summary ---
Author Organization [facility] Address [address] [place] [address] Care Team Providers Care Registered Safety Engineer Name Role Phone Alberto Mcqueen MD Primary Care Provider + [phone] Allergies No known active allergies Medications quinapriL [...] (10/15/2016): Vertigo Lightheadedness 04/30/2015 Overview (10/15/2016): Lightheadedness Social History Tobacco Use Types Packs/Day Years Used Date Smoking Tobacco: Former Smokeless Tobacco: Never Alcohol Use Standard Drinks/Week Comments No 0 (1 standard drink = 0.6 oz pur e alcohol) Personal Safety Answer Date Recorded Getting School Help Needed Not on file 09/07 Sex and Gender Information Value Date Recorded Sex Assigned at Not on file 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
== END 2024-09-17 10:07 | disposition home or self-care (01) ==
LOC: ANHCARD 10:08
PROVIDERS: PCP Family Medicine; Visit Provider Nurse Practitioner Adult Health
DX: R07.9 Chest pain, unspecified (principal); I10 Essential (primary) hypertension
CPT/HCPCS: 93017

== ENCOUNTER 2024-12-30 09:08 | Outpatient (CLI) | payer BC, SELFPAY ==
--- NOTE | ~2024-12-30 | XR_ITS ---
EXAM/PROCEDURE: XR abdomen/kub 1V - 12/30/2024 9:21 CDT HISTORY: 59 years old Male with R10.12 - Left upper quadrant pain, WORSE WHEN LAYING DOWN COMPARISON: None available. TECHNIQUE: AP view(s) of the abdomen. FINDINGS: The bowel gas pattern is normal. There is no evidence for obstruction. No free intraperitoneal air is identified on this supine radiograph. The visualized soft tissue shadows are unremarkable. No gross bony abnormalities are seen. Visualized portions of lung bases are clear. IMPRESSION: No acute process. Reviewed, dictated and finalized at location A. IMPRESSION: No acute process.
== END 2024-12-30 09:09 | disposition home or self-care (01) ==
PROVIDERS: PCP Family Medicine; Visit Provider Nurse Practitioner Adult Health
DX: R10.12 Left upper quadrant pain (principal)
CPT/HCPCS: 74018

== ENCOUNTER 2025-05-14 09:32 | Outpatient (CLI) | payer BC, SELFPAY ==
--- NOTE | 2025-05-14 09:40 | ECHO_ITS ---
Patient Info Name: Mick Guerrero Age: 60 years : 1965 Gender: Male Ht: 72 in Wt: 247 lbs BSA: 2.42 m2 HR: 88 bpm BP: 147 / 107 mmHg Heart Rhythm: Sinus Rhythm Technical Quality: Fair Exam Date: 05/14/2025 9:41 AM Patient Status: O Admit Date: 05/14/2025 Exam Type: CA echo doppler color flow Complete two-dimensional, color flow and Doppler transthoracic echocardiogram is performed. Senior Care Assistant: Ellie Lion Attending Provider: Ernst Singh DO Summary 1. Complete two-dimensional, color flow and Doppler transthoracic echocardiogram is performed. 2. Left ventricular chamber dimension is normal. 3. Left ventricular systolic function is normal, estimated at 60-65. 4. The left ventricular diastolic function is grade I diastolic dysfunction. 5. E/e' 18 is elevated. 6. No pulmonary hypertension, estimated pulmonary arterial systolic pressure is 17 mmHg. Left Ventricle E/e' 18 is elevated. Left ventricular chamber dimension is normal. Left ventricular systolic function is normal, estimated at 60-65. The left ventricular diastolic function is grade I diastolic dysfunction. Right Ventricle Right ventricular chamber dimension is normal. Right ventricular systolic function is normal and with normal TAPSE 2.6 cm. Left Atria Left atrial chamber dimension is normal. Right Atria Right atrial chamber dimension is normal. Aortic Valve The aortic valve is trileaflet. There is no aortic valve stenosis. There is no aortic valve regurgitation. Pulmonic Valve There is no pulmonic regurgitation. Mitral Valve There is no mitral valve stenosis. There is no mitral valve regurgitation. Tricuspid Valve There is no tricuspid valve regurgitation. No pulmonary hypertension, estimated pulmonary arterial systolic pressure is 17 mmHg. Pericardium/Pleural There is no pericardial effusion. Inferior Vena Cava Normal inferior vena cava with >50% collapse upon inspiration consistent with normal right atrial pressure, 5 mmHg. Aorta The aortic root size at the sinus of Valsalva is normal. Left Ventricular Outflow Tract Name Value Normal LVOT 2D LVOT Diameter 2.1 cm LVOT Doppler LVOT Peak Velocity 86 cm/s LVOT Peak Gradient 3 mmHg LVOT Mean Gradient 1 mmHg LVOT VTI 15 cm LVOT VTI/AV VTI Ratio 0.7 LVOT Stroke Volume 51 ml LVOT CO 4.1 l/min LVOT CI 1.7 l/min/m2 Pulmonic Valve Name Value Normal RVOT Doppler RVOT Peak Velocity 82 cm/s RVOT Peak Gradient 3 mmHg PV Doppler PV Peak Velocity 123 cm/s PV Peak Gradient 6 mmHg Mitral Valve Name Value Normal MV Diastolic Function MV E Peak Velocity 76 cm/s MV A Peak Velocity 100 cm/s MV E/A 0.8 MV Decel Time (PW) 177 ms MV Annular TDI MV E/e' (Septal) 19.8 MV E/e' (Lateral) 16.6 MV E/e' (Average) 18.2 Tricuspid Valve Name Value Normal TV Regurgitation Doppler TR Peak Velocity 174 cm/s TR Peak Gradient 12 mmHg Estimated PAP/RSVP RA Pressure 5 mmHg <=5 PA Systolic Pressure 17 mmHg <36 RV Systolic Pressure 17 mmHg <36 TV Annular TDI TV Lateral Sadie s' Velocity 13.2 cm/s >=9.5 Aorta Name Value Normal Ascending Aorta Ao Root Diameter (MM) 3.4 cm Ao Root Diam Index (MM) 1.4 cm/m2 Aortic Valve Name Value Normal AV Doppler AV Peak Velocity 137 cm/s AV Peak Gradient 8 mmHg AV Mean Gradient 3 mmHg AV VTI 23 cm AV Area (Cont Eq VTI) 2.3 cm2 >=3.0 AV Area (Cont Eq Abraham) 2.2 cm2 AV DI (Abraham) 0.63 AV Regurgitation 2D LVOT Area 3.5 cm2 Ventricles Name Value Normal LV Dimensions 2D/MM IVS Diastolic Thickness (2D) 1.2 cm 0.6-1.0 LVID Diastole (2D) 3.6 cm 4.2-5.8 LVIW Diastolic Thickness (2D) 1.3 cm 0.6-1.0 LVID Systole (2D) 2.5 cm 2.5-4.0 LVOT Diameter 2.1 cm LV Mass (2D Cubed) 146.87 g 88.00-224.00 LV Mass Index (2D Cubed) 61 g/m2 49-115 Relative Wall Thickness (2D) 0.71 <=0.42 LV Fractional Shortening/Ejection Fraction 2D/MM LV Fractional Shortening (2D) 31 % 25-43 LV EF (2D Teichvictor manuelz) 60 % LV Diastolic Volume (4C MOD) 84 ml LV EF (4C MOD) 57 % LV Diastolic Volume (2C MOD) 69 ml LV EF (2C MOD) 51 % LV Diastolic Volume (BP MOD) 78 ml 62-150 LV Diastolic Volume Index (BP MOD) 32 ml/m2 34-74 LV Systolic Volume (BP MOD) 37 ml 21-61 LV Systolic Volume Index (BP MOD) 15 ml/m2 11-31 LV EF (BP MOD) 52 % 52-72 LV Diastolic Length (4C) 7.6 cm LV Systolic Length (4C) 6.8 cm LV Stroke Volume (4C MOD) 48 ml Atria Name Value Normal LA Dimensions LA Dimension (MM) 4.0 cm 3.0-4.0 LA Volume (4C A-L) 76 ml LA Volume (BP A-L) 69 ml RA Dimensions RA Area (4C) 12.0 cm2 <=18.0 Report Signatures
--- OUTSIDE RECORDS SUMMARY | 2025-05-15 09:19 | XMS_ITS | Encounter Summary ---
Author Organization [facility] [employer] 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
--- OUTSIDE RECORDS SUMMARY | 2025-05-15 09:19 | XMS_ITS | Clinical Summary ---
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
== END 2025-05-14 09:33 | disposition home or self-care (01) ==
PROVIDERS: PCP Family Medicine; Visit Provider Internal Medicine Cardiovascular Disease
DX: R06.09 Other forms of dyspnea (principal)
CPT/HCPCS: 93306